=== PATIENT | female | born 1965 | race Caucasian/White ===

== ENCOUNTER → 2025-02-21 08:17 | Outpatient (BNVA) | payer OTHER, SELFPAY | PROVIDERS: PCP Family Medicine; Visit Provider Family Medicine | DX: Z00.00 Encounter for general adult medical examination without abnormal findings (principal) | CPT/HCPCS: 80053; 80061; 84443; 85025 ==

== ENCOUNTER 2025-03-07 09:27 | Outpatient (CLI) | payer OTHER, SELFPAY ==
--- NOTE | 2025-03-07 09:39 | XR_ITS ---
WS: [id number] Left hip, AP and frog-leg views, 03/07/2025 Clinical Data: left hip pain Comparison: None. Findings: No fractures or dislocations are seen. The left hip shows no erosion, sclerosis, narrowing, cyst formation or fragmentation of the left femoral head.. The soft tissues are not remarkable. The adjacent pelvis is normal. XR/XR hip LT 2-3V wo/w pel* [id number] Impression: Negative left hip.
== END 2025-03-07 09:28 | disposition home or self-care (01) ==
PROVIDERS: PCP Family Medicine; Visit Provider Family Medicine
DX: M25.552 Pain in left hip (principal)
CPT/HCPCS: 73502

== ENCOUNTER 2025-04-05 05:46 | Day surgery (SDC) | payer OTHER, SELFPAY ==
[2025-04-05 06:01] VITALS: BP 113/85; PULSE 98; RESP 18; TEMP 36.3; O2SAT 97; BMI 21.6
--- NOTE | 2025-04-05 06:03 | W.PM.OPSUD ---
Surgery/Procedure H&P Update DATE OF PROCEDURE: April 05, 2025 DATE H&P PERFORMED: 03/07/25 H&P UPDATE INFORMATION: I have reviewed H&P completed within last 30 days, I have examined patient prior to procedure, No changes to prior documentation, H&P is in [facility] EMR on date indicated and Risks and benefits of the procedure reviewed PLANNED PROCEDURE: Operation Date: 04/05/25 07:00 Proposed Procedures p Colonoscopy 30304 G0121 Z12.11(Not Applicable) - Khadar Cheung MD
--- NOTE | 2025-04-05 06:41 | ANES.PREANE2 ---
Pre-Anesthetic Assessment Height/Weight: Height 1.63 m Weight 57.153 kg Temp Pulse Resp BP Pulse Ox O2 Del Method 97.3 F L 98 18 113/85 97 Room Air 04/05/25 06:01 04/05/25 06:01 04/05/25 06:01 04/05/25 06:01 04/05/25 06:01 04/05/25 06:01 Operation Date: 04/05/25 07:00 Proposed Procedures p Colonoscopy 61083 G0121 Z12.11(Not Applicable) - Khadar Cheung MD Last intake: Intake Last Liquid Date 04/04/25 Last Liquid Time 19:00 Last Solid Date 04/03/25 Last Solid Time 19:00 Social No alcohol and No tobacco Exam alert and oriented x 3 Airway Submandibular: within normal limits Cervical ROM: within normal limits Mallampati: Class II Dentition: full History/ROS No significant history except as noted Pulmonary None reported CV/HEM None reported None reported Hepatic None reported GI Gastroesophageal Reflux Disease Metabolic None reported Musc/skel None reported Neuropsych Anxiety Anesthetic Plan ASA status: 2 Anesthesia: MAC Risk of > 500 ml blood loss (7ml/kg in children): No Medications/Allergies Home Medications ?Medication ?Instructions ?Recorded ?Confirmed ?Last Taken ?Type citalopram 20 mg tablet 20 mg PO DAILY #90 tabs 05/08/24 04/02/25 04/04/25 Rx meloxicam 15 mg tablet 15 mg PO DAILY #90 tabs 05/08/24 04/02/25 04/04/25 Rx omeprazole 20 mg capsule,delayed 20 mg PO DAILY #90 caps 05/08/24 04/02/25 04/04/25 Rx release lorazepam 0.5 mg tablet 0.5 mg PO TID PRN anxiety #180 tabs 09/15/24 04/02/25 04/04/25 Rx zolpidem 10 mg tablet 10 mg PO .qpm #90 tabs 11/21/24 04/02/25 04/04/25 Rx estradiol 0.05 mg/24 hr semiweekly 1 patch transdermal .twice weekly 02/14/25 04/02/25 04/02/25 Rx transdermal patch (Stella) #24 ea polyethylene glycol 3350 17 17 g PO BID 5 days #170 grams 03/07/25 04/02/25 04/04/25 Rx gram/dose oral powder (Miralax) Allergies Allergy/AdvReac Type Severity Reaction Status Date / Time Sulfa (Sulfonamide Allergy Mild ADR-Itching Verified 04/02/25 10:06 Antibiotics) codeine Allergy Unknown nausea Verified 04/02/25 10:06 Current Medications Generic Name Dose Route Start Last Admin Trade Name Freq PRN Reason Stop Dose Admin Sodium Chloride 1,000 mls @ 15 mls/hr 04/05/25 05:53 04/05/25 06:14 Sodium Chloride 0.9% IV 04/06/25 05:52 15 mls/hr .Q24H PRN Administration COLONOSCOPY FLUIDS PFSH Anesthesia Medical History Postmenopausal hormone replacement therapy GERD without esophagitis Ankle pain, chronic Chronic insomnia Generalized anxiety disorder with panic attacks Surgical History Hx of breast biopsy benign 2023 Hx of colonoscopy 8.28.15 normal with diverticulosis Hx of craniotomy for R ear schwanomma S/P cholecystectomy H/O tubal ligation H/O: hysterectomy with BSO for endometriosis and strangulated bowel repair Family History Father Hypertension Mother Breast cancer Social History Smoking and tobacco/nicotine status: never used tobacco/nicotine Second hand smoke exposure: No Alcohol intake: never Substance/Drug Use: never Household members: spouse Housing: House Marital status: Number of children: 3 Highest education level completed: Associate Degree: Occupational, Technical, Vocational Program 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
[2025-04-05 07:34] VITALS: BP 104/53; PULSE 76; RESP 20; TEMP 36.3; O2SAT 95
[2025-04-05 07:42] VITALS: BP 108/66; PULSE 75; RESP 18; O2SAT 96
--- NOTE | 2025-04-05 15:28 | ANE.PACU2 ---
Inpatient post-anesthesia follow up: Airway intact: Yes Vital signs: Temperature 97.3 F Pulse Rate 75 Respiratory Rate 18 Blood Pressure 108/66 Pulse Oximetry 96 Oxygen Delivery Me thod Room Air Oxygen Flow Rate Fraction of Inspir ed Oxygen Hydration adequate: Yes Nausea and vomiting: No Pain level: 1 Mental status: Baseline
== END 2025-04-05 08:00 | disposition home or self-care (01) ==
PROVIDERS: PCP Family Medicine; Visit Provider Surgery
PROC: 0DJD8ZZ Inspection of Lower Intestinal Tract, Via Natural or Artificial Opening Endoscopic (ICD-10-PCS; CPT 45378; principal; 2025-04-05 07:00)
DX: Z12.11 Encounter for screening for malignant neoplasm of colon (principal); K57.30 Diverticulosis of large intestine without perforation or abscess without bleeding; D12.4 Benign neoplasm of descending colon; K21.9 Gastro-esophageal reflux disease without esophagitis; F41.9 Anxiety disorder, unspecified; Z80.3 Family history of malignant neoplasm of breast
CPT/HCPCS: 45380; 88305; J2704; J7030; J9999